=== PATIENT | female | born 1970 | race Caucasian/White ===

== ENCOUNTER 2022-06-09 23:56 | Emergency (ER) | payer BC ==
[~2022-06-09] VITALS: Ht 162.6 cm; Wt 114.8 kg
[2022-06-10 00:55] LABS: BASOPHILS % (AUTO) 0 % (0-10); EOSINOPHILS # (AUTO) 0.1 10^3/uL (0.0-0.3); EOSINOPHILS % (AUTO) 1 % (0-10); HEMATOCRIT 47 % (35-52); HEMOGLOBIN 15.9 g/dL (11.5-16.0); LYMPHOCYTES # (AUTO) 1.7 10^3/uL (1.0-4.0); LYMPHOCYTES % (AUTO) 13 % (12-44); MEAN CORPUSCULAR HEMOGLOBIN 29 pg (25-34); MEAN CORPUSCULAR HGB CONC 34 g/dL (32-36); MEAN CORPUSCULAR VOLUME 85 fL (80-99); MEAN PLATELET VOLUME 10.4 fL (9.0-12.2); MONOCYTES # (AUTO) 0.6 10^3/uL (0.0-1.0); MONOCYTES % (AUTO) 4 % (0-12); NEUTROPHILS # (AUTO) 10.6 10^3/uL (1.8-7.8); NEUTROPHILS % (AUTO) 81 % (42-75); PLATELET COUNT 534 10^3/uL (130-400); WHITE BLOOD COUNT 13.1 10^3/uL (4.3-11.0)
[2022-06-10 01:00] LABS: BILIRUBIN,URINE NEGATIVE (NEGATIVE); CLARITY,URINE SL CLOUDY; COLOR,URINE YELLOW; GLUCOSE, URINE (UA) NEGATIVE (NEGATIVE); KETONES,URINE 3+ (NEGATIVE); LEUKOCYTE ESTERASE ,URINE NEGATIVE (NEGATIVE); NITRITE,URINE NEGATIVE (NEGATIVE); PH,URINE 5.5 (5-9); PROTEIN,URINE 1+ (NEGATIVE)
[2022-06-10] MEDS ORDERED: fentaNYL INJ 100 MCG/2 ML AMP IVP ONE ×2 (01:00→03:30)
[2022-06-10] MEDS ORDERED: ONDANSETRON 4 MG/2 ML (SDV) Z0FRAN IVP ONE ×2 (01:00→06:30)
[2022-06-10] MEDS ORDERED: LACTATED RINGERS 1,000 ML IV ONE (01:00)
[2022-06-10 01:03] LABS: ALBUMIN 4.2 GM/DL (3.2-4.5)
[2022-06-10 01:05] LABS: CALCIUM 10.1 MG/DL (8.5-10.1)
[2022-06-10 01:06] LABS: TOTAL PROTEIN 8.1 GM/DL (6.4-8.2)
[2022-06-10 01:08] LABS: BILIRUBIN,TOTAL 0.6 MG/DL (0.1-1.0)
--- NOTE | 2022-06-10 01:09 | ED Abdominal Pain ---
General Chief Complaint: Abdominal/GI Problems Stated Complaint: ABD PX,DEHYRATED Nursing Triage Note: Pt ambulates to ED5 with c/o abdominal pain beginning Thursday afternoon. Pt reports having gastric bypass surgery 05/28/22, reports follow up was fine on Thursday. Abdominal pain and cramping started Thursday afternoon 06/09/22. Pt reports waves of hot and cold that coinside with abdominal pain cramps that come and go. Heat applied with minimal relief. Pt called the on-call dr for her surgery and they advised her to go to ER. Source of Information: Patient Exam Limitations: No Limitations NPO Since: [id number] @ 1300 (apple sauce and hot tea) (CHOLO SEN) History of Present Illness Date Seen by Provider: Jun 10, 2022 Time Seen by Provider: 00:33 Initial Comments This is a 51yo F s/p Laparoscopic Sebastian-en-Y gastric bypass ([id number]) who presents for abdominal pain since yesterday [id number] in the evening. Patient endorses general malaise and some abdominal discomfort throughout the day which progressed to severe abdominal discomfort at around 2100. Pt described 03/10 severe, intermittent abdominal pain of the general abdominal area, also described as a "labor cramp feeling". Pt endorses pale/yellow stool, nausea, vomiting (frothy appearance), chills, and diaphoresis. Denies hematochezia, melena, or hematemesis. Patient reports last intake of apple sauce and hot tea approximately 1300 on . Otherwise, she has trouble with intake of fluids and foods. No other reported pmhx. Home medications bariatric vitamins, Pepcid, and Effexor. Allergies to penicillins, sulfa drugs, and meperidine. Surgical history includes Sebastian-en-Y gastric bypass ([id number] Stapleton in [place], [place]), cholecystectomy, and complete hysterectomy. No complications following Sebastian-en-Y, last appointment with Dr. Stapleton was which was unremarkable. Denies and tobacco, alcohol, or illicit drug use. Timing/Duration: 12-24 Hours Severity/Quality: Severe Location: Generalized Abdomen Radiation: No Radiation Activities at Onset: None Associated Symptoms: Diaphoresis, Fever/Chills, Nausea/Vomiting (CHOLO SEN) Allergies and Home Medications Allergies Coded Allergies: Penicillins (Verified Allergy, Severe, Anaphylaxis, 06/10/22) Sulfa (Sulfonamide Antibiotics) (Verified Allergy, Severe, Anaphylaxis, 06/10/22) meperidine (Verified Allergy, Unknown, 06/10/22) Patient Home Medication List Home Medication List Reviewed: Yes (CHELSEY JEFFERS MD) Review of Systems Review of Systems Constitutional: chills, diaphoresis, fever, malaise Respiratory: No Symptoms Reported Cardiovascular: No Symptoms Reported Gastrointestinal: Abdominal Pain; Denies Constipated, Denies Diarrhea, Denies Difficulty Swallowing; Nausea, Poor Fluid Intake, Vomiting (frothy), Other (pale/yellow stool) Genitourinary: No Symptoms Reported Skin: no symptoms reported (CHOLO SEN) Past Mysxcwq-Rdflvm-Qpzlgp Hx Patient Social History Tobacco Use?: No Smokeless Tobacco Frequency: Never a User Use of E-Cig and/or Vaping dev: No Substance use?: No Alcohol Use?: No Pt feels they are or have been: No (CHOLO SEN) Immunizations Up To Date Influenza Vaccine Up-to-Date: Yes; Up-to-Date First/Initial COVID19 Vaccinat: unkn (CHOLO SEN) Past Medical History Surgery/Hospitalization HX: Pt had gastric bypass surgery done in [place] by Dr Stapleton on 05/28/22 (CHOLO SEN) Physical Exam Vital Signs Vital Signs - First Documented 06/10/22 00:23 Temp 36.5 Pulse 103 Resp 18 B/P (MAP) 197/131 (153) Pulse Ox 98 O2 Delivery Room Air (CHELSEY JEFFERS MD) Vital Signs Capillary Refill : (CHOLO SEN) Height/Weight/BMI Height: '" Weight: lbs. oz. kg; 43.00 BMI Method: General Appearance: WD/WN, mild distress, obese Respiratory: chest non-tender, lungs clear, normal breath sounds, no respiratory distress, no accessory muscle use Cardiovascular: regular rate, rhythm, no edema, no murmur Gastrointestinal: soft, other (obese abdomen, diminished bowel sounds. Pain with percussion and palpation of left abdomen. Trochar incision sites x5 are well healed. Small area of ecchymosis on RLQ which patient reports was present following her surgery and has not worsened.) Neurologic/Psychiatric: no motor/sensory deficits, alert, normal mood/affect, oriented x 3 Skin: normal color, warm/dry (CHOLO SEN) Progress/Results/Core Measures Results/Orders Lab Results Laboratory Tests Test 06/10/22 00:20 06/10/22 00:54 Range/Units White Blood Count 13.1 H 4.3-11.0 10^3/uL Red Blood Count 5.55 H 3.80-5.11 10^6/uL Hemoglobin 15.9 11.5-16.0 g/dL Hematocrit 47 35-52 % Mean Corpuscular Volume 85 80-99 fL Mean Corpuscular Hemoglobin 29 25-34 pg Mean Corpuscular Hemoglobin Concent 34 32-36 g/dL Red Cell Distribution Width 13.8 10.0-14.5 % Platelet Count 534 H 130-400 10^3/uL Mean Platelet Volume 10.4 9.0-12.2 fL Immature Granulocyte % (Auto) 0 % Neutrophils (%) (Auto) 81 H 42-75 % Lymphocytes (%) (Auto) 13 12-44 % Monocytes (%) (Auto) 4 0-12 % Eosinophils (%) (Auto) 1 0-10 % Basophils (%) (Auto) 0 0-10 % Neutrophils # (Auto) 10.6 H 1.8-7.8 10^3/uL Lymphocytes # (Auto) 1.7 1.0-4.0 10^3/uL Monocytes # (Auto) 0.6 0.0-1.0 10^3/uL Eosinophils # (Auto) 0.1 0.0-0.3 10^3/uL Basophils # (Auto) 0.0 0.0-0.1 10^3/uL Immature Granulocyte # (Auto) 0.1 0.0-0.1 10^3/uL Sodium Level 139 135-145 MMOL/L Potassium Level 4.0 3.6-5.0 MMOL/L Chloride Level 105 98-107 MMOL/L Carbon Dioxide Level 18 L 21-32 MMOL/L Anion Gap 16 H 5-14 MMOL/L Blood Urea Nitrogen 15 7-18 MG/DL Creatinine 0.83 0.60-1.30 MG/DL Estimat Glomerular Filtration Rate 85 BUN/Creatinine Ratio 18 Glucose Level 117 H 70-105 MG/DL Calcium Level 10.1 8.5-10.1 MG/DL Corrected Calcium 9.9 8.5-10.1 MG/DL Total Bilirubin 0.6 0.1-1.0 MG/DL Aspartate Amino Transf (AST/SGOT) 38 H 5-34 U/L Alanine Aminotransferase (ALT/SGPT) 53 0-55 U/L Alkaline Phosphatase 124 40-136 U/L C-Reactive Protein High Sensitivity 0.95 H 0.00-0.50 MG/DL Total Protein 8.1 6.4-8.2 GM/DL Albumin 4.2 3.2-4.5 GM/DL Lipase 17 8-78 U/L Urine Color YELLOW Urine Clarity SL CLOUDY Urine pH 5.5 5-9 Urine Specific [place] >=1.030 1.016-1.022 Urine Protein 1+ H NEGATIVE Urine Glucose (UA) NEGATIVE NEGATIVE Urine Ketones 3+ H NEGATIVE Urine Nitrite NEGATIVE NEGATIVE Urine Bilirubin NEGATIVE NEGATIVE Urine Urobilinogen 1.0 < = 1.0 MG/DL Urine Leukocyte Esterase NEGATIVE NEGATIVE Urine RBC (Auto) NEGATIVE NEGATIVE Urine RBC NONE /HPF Urine WBC 0-2 /HPF Urine Crystals PRESENT H /LPF Urine Calcium Oxalate Crystals MODERATE H /LPF Urine Bacteria NEGATIVE /HPF Urine Casts NONE /LPF Urine Mucus SMALL H /LPF Urine Culture Indicated NO (CHELSEY JEFFERS MD) My Orders Orders - CHELSEY JEFFERS MD Cbc With Automated Diff (06/10/22 00:48) Comprehensive Metabolic Panel (06/10/22 00:48) Hs C Reactive Protein (06/10/22 00:48) Lipase (06/10/22 00:48) Ua Culture If Indicated (06/10/22 00:48) Ed Iv/Invasive Line Start (06/10/22 00:48) Lactated Ringers (Lr 1000 Ml Iv Solution (06/10/22 01:00) Ondansetron Injection (Zofran Injectio (06/10/22 01:00) Fentanyl Inj (Sublimaze Injection) (06/10/22 01:00) Ct Abdomen/Pelvis W (06/10/22 01:27) Promethazine Injection (Phenergan Injec (06/10/22 03:30) Fentanyl Inj (Sublimaze Injection) (06/10/22 03:30) Morphine Injection (Morphine Injection (06/10/22 06:15) Ondansetron Injection (Zofran Injectio (06/10/22 06:30) Ns Iv 500 Ml (Sodium Chloride 0.9%) (06/10/22 06:30) (CHELSEY JEFFERS MD) Medications Given in ED Current Medications Medications Dose Ordered Sig/Allie Route Start Time Stop Time Status Last Admin Dose Admin Fentanyl Citrate 50 mcg ONCE ONCE IVP 06/10/22 01:00 06/10/22 01:01 DC 06/10/22 01:12 50 MCG Fentanyl Citrate 50 mcg ONCE ONCE IVP 06/10/22 03:30 06/10/22 03:31 DC 06/10/22 03:27 50 MCG Lactated Ringer's 1,000 ml @ 0 mls/hr Q0M ONCE IV 06/10/22 01:00 06/10/22 01:01 DC 06/10/22 00:58 999 MLS/HR Ondansetron HCl 4 mg ONCE ONCE IVP 06/10/22 06:30 06/10/22 06:31 DC 06/10/22 07:00 4 MG Ondansetron HCl 8 mg ONCE ONCE IVP 06/10/22 01:00 06/10/22 01:01 DC 06/10/22 01:12 8 MG Promethazine HCl 25 mg ONCE ONCE IVP 06/10/22 03:30 06/10/22 03:31 DC 06/10/22 03:27 25 MG Sodium Chloride 500 ml @ 0 mls/hr Q0M ONCE IV 06/10/22 06:30 06/10/22 06:31 DC 06/10/22 06:21 999 MLS/HR (CHELSEY JEFFERS MD) Vital Signs/I&O 06/10/22 06/10/22 06/10/22 06/10/22 00:23 00:30 06:33 07:07 Temp 36.5 36.5 36.5 Pulse 103 103 100 100 Resp 18 18 18 18 B/P (MAP) 197/131 (153) 163/94 (117) 151/75 (100) 151/75 Pulse Ox 98 98 99 99 O2 Delivery Room Air Room Air (CHELSEY JEFFERS MD) Blood Pressure Mean: 153 Progress Progress Note #1: Time: 04:18 Progress Note Patient was interviewed and examined by me personally along with MS 4. She was found to have some left sided abdominal tenderness. Labs were obtained and re viewed by me showing mild leukocytosis without any other significant abnormalities. Labs included CBC, CMP, urinalysis and CRP. Patient's pain has been treated with fentanyl. Nausea has been treated with Zofran and Phenergan. She has been hydrated with a liter of LR. Due to the higher risk of recent Sebastian-en-Y surgery, CT imaging was deemed appropriate. Oral contrast was attem pted although she could not drink very much of the contrast. Symptoms are controlled at this time. CT read is pending due to long wait times with [facility]. Progress Note #2: Time: 05:40 Progress Note Patient has required repeat doses of pain and antiemetic medications. IV fluids were infused. CT abdomen/pelvis with IV and oral contrast was obtained. Patient was able to only ingest a small quantity of contrast media. CT report from [facility] suggests likely small bowel obstruction. Hypodensities in the spleen also raised question of splenic microabscesses. Infectious process seems unlikely with no fever and low CRP. Progress Note #3: Time: 05:52 Progress Note Case was discussed with Dr. Chirinos, general surgeon on-call. He recommended contacting the surgical team in [place] since she is so close to her surgery date and is about 2 weeks postoperative. I contacted Cherie Francis, midlevel provider on-call for Dr. Stapleton. She recommends transfer back to [place]. She advised no NG tube with a recent Sebastian-en-Y. Progress Note #4: Time: 06:18 Progress Note Both patient and Dr. Stapleton's team are agreeable to patient transferring by private vehicle. This will expedite her transfer by potentially several hours. She will receive another 500 mL in fluid bolus before departure as well as morphine for pain control and Zofran for nausea control. Transfer is being a ccepted by Dr. Stapleton via Cherie Francis. (CHELSEY JEFFERS MD) Diagnostic Imaging Diagonstic Imaging: CT Plain Films/CT/US/NM/MRI: abdomen, pelvis Comments CT abdomen and pelvis with IV and oral contrast viewed by me and [facility] report reviewed. There was no evidence of anastomotic leak. Small bowel obstruction was suspected with transition point near the anastomosis. No additional abnormalities appreciated. (CHELSEY JEFFERS MD) Departure Impression Primary Impression: Small bowel obstruction Additional Impression: Postoperative Sebastian-en-Y Disposition: 02 XFER SHT-TRM HOSP Condition: Stable Transfer Transfer Reason: Exceeds level of care Time Spoke to Accepting Phy: 05:51 Transfer Progress Notes Transfer accepted by Dr. Stapleton's team at [facility] in [place]. Transfer Time: 07:07 Transfer Facility: [facility] Method of Transfer: Private Vehicle (CHELSEY JEFFERS MD) Departure-Patient Inst. Referrals: NO,LOCAL PHYSICIAN (PCP/Family) Primary Care Physician Medical Student Attestation and Attending Note: I have personally interviewed and examined this patient along with Cholo Sen, MS 4. I have reviewed student documentation including history, physical, and assessments. I agree with the documentation except where otherwise noted. Exam: General: Alert, oriented, no acute distress, well developed, obese HEENT: Normocephalic and atraumatic Heart: Regular rate and rhythm without murmur Lungs: Clear to auscultation bilaterally with normal effort Abdomen: Soft, tenderness in the left abdomen, upper greater than lower, nondistended, normal bowel sounds Neuropsych: Alert, oriented, no focal deficits Skin: Warm and dry without rashes, abdominal incisions well-healing (CHELSEY JEFFERS MD) CHOLO SEN Jun 10, 2022 01:09 CHELSEY JEFFERS MD Jun 10, 2022 04:21
[2022-06-10 01:10] LABS: CREATININE SERUM 0.83 MG/DL (0.60-1.30)
[2022-06-10 01:13] LABS: BACTERIA,URINE NEGATIVE /HPF; CALCIUM OXALATE CRYSTALS,UR MODERATE /LPF; WBC,URINE 0-2 /HPF
[2022-06-10] MEDS ORDERED: PROMETHAZINE INJ 25 MG/ML (PHENERGAN) AMP IVP ONE (03:30)
[2022-06-10] MEDS ORDERED: morphine INJ 10 MG/ML 1ML (SYR OR VIAL) IVP STA (06:15)
[2022-06-10] MEDS ORDERED: NS IV 500 ML 500 ML IV ONE (06:30)
--- NOTE | 2022-06-10 06:53 | Diagnostic Imaging Report ---
PROCEDURE: CT abdomen and pelvis with contrast. TECHNIQUE: Multiple contiguous axial images were obtained through the abdomen and pelvis after administration of intravenous contrast. Auto Exposure Controls were utilized during the CT exam to meet ALARA standards for radiation dose reduction. All CT scans use one or more of the following dose optimizing techniques: automated exposure control, MA and/or KvP adjustment based on patient size and exam type or iterative reconstruction. INDICATION: 51-year-old female, left-sided abdominal pain. 2 weeks post Sebastian-en-Y procedure. CORRELATION STUDY: None. FINDINGS: LOWER THORAX: Clear. LIVER: Mild steatosis. Calcified granulomas. GALLBLADDER: Cholecystectomy. No significant bile duct dilatation. SPLEEN: Normal in size. Tiny hypodensity scattered throughout the spleen. PANCREAS: Mildly atrophic. ADRENAL GLANDS: Unremarkable. KIDNEYS: Normal configuration. No calcification or obstruction. ABDOMINAL AORTA: Unremarkable, nonaneurysmal. GASTROINTESTINAL TRACT: Post gastric bypass procedure. A distended air and fluid-filled small bowel loops with wall thickening are present with transition point by the anastomosis left mid abdomen. Slight haziness of the central mesentery. Small volume pelvic ascites. No intra-abdominal abscess collection. Colon with diverticulosis. No diverticulitis. Gastrointestinal tract is limited given the absence of contrast. URINARY BLADDER: Decompressed. REPRODUCTIVE: Hysterectomy. OSSEOUS STRUCTURES: Mild to moderately advanced thoracolumbar spine degenerative change. OTHER: None. IMPRESSION: 1. Postoperative changes of a gastric bypass. Distended air fluid-filled small bowel with transition point by the anastomosis. Some of this may be attributed postoperative change with possibility of a partial or early bowel obstruction not completely excluded. Additionally with wall thickening may reflect nonspecific enteritis or edema. Consideration for short-term follow-up repeat imaging would be recommended. 2. Tiny hypodensities throughout the spleen. Nonspecific. Splenic microabscesses are a possibility. 3. Small volume pelvic free fluid. No definitive intra-abdominal abscess collection. Initial report was provided by [facility]. Dictated by: Dictated on workstation # [id number]
[2022-06-10 07:07] VITALS: BP 151/75
== END 2022-06-10 07:07 | disposition short-term general hospital (02) ==
LOC: ER 06-10 00:02
DX: K56.609 Unspecified intestinal obstruction, unspecified as to partial versus complete obstruction (principal); D72.829 Elevated white blood cell count, unspecified; E66.9 Obesity, unspecified; Z68.41 Body mass index [BMI] 40.0-44.9, adult; Z98.84 Bariatric surgery status; Z90.49 Acquired absence of other specified parts of digestive tract; Z88.5 Allergy status to narcotic agent
CPT/HCPCS: 36415; 74177; 80053; 81000; 83690; 85025; 86141

== ENCOUNTER 2022-08-03 15:34 | Emergency (ER) | payer BC ==
[~2022-08-03] VITALS: Ht 162.6 cm; Wt 100.0 kg
--- NOTE | 2022-08-03 15:53 | ED Fall/Injury ---
General Stated Complaint: FALL, RIB PAIN Source: patient Exam Limitations: no limitations History of Present Illness Date Seen by Provider: Aug 03, 2022 Time Seen by Provider: 15:37 Initial Comments 51-year-old female presents to the emergency department today for left upper quadrant abdominal and left rib pain. Symptoms started after she tripped and fell striking the table in dining chairs on the way down. She complains of pain in her left ribs and left upper abdomen. She has not tried anything for her pain. She denies hitting her head or losing consciousness. She is not on blood thinning medications. All other systems reviewed and negative except documented per HPI. Voice recognition software was used to help create this chart Allergies and Home Medications Allergies Coded Allergies: Penicillins (Verified Allergy, Severe, Anaphylaxis, 06/10/22) Sulfa (Sulfonamide Antibiotics) (Verified Allergy, Severe, Anaphylaxis, 06/10/22) meperidine (Verified Allergy, Unknown, 06/10/22) Patient Home Medication List Home Medication List Reviewed: Yes Review of Systems Review of Systems Constitutional: no symptoms reported Past Mvcldac-Jugvnb-Xspera Hx Patient Social History Tobacco Use?: No Use of E-Cig and/or Vaping dev: No Substance use?: No Alcohol Use?: No Immunizations Up To Date First/Initial COVID19 Vaccinat: unkn Past Medical History Surgery/Hospitalization HX: Pt had gastric bypass surgery done in [place] by Dr Stapleton on 05/28/22 Family Medical History Reviewed Nursing Family Hx No Pertinent Family Hx Physical Exam Vital Signs Vital Signs - First Documented 08/03/22 15:38 Temp 36.6 Pulse 93 Resp 18 B/P (MAP) 162/99 (120) Pulse Ox 100 O2 Delivery Room Air Capillary Refill : Height, Weight, BMI Height: '" Weight: lbs. oz. kg; 43.00 BMI Method: General Appearance: WD/WN, other (Appears to be in pain) HEENT: PERRL/EOMI, normal ENT inspection, TMs normal, pharynx normal Neck: non-tender, full range of motion, supple, normal inspection Cardiovascular: regular rate, rhythm, no edema, no murmur Respiratory: lungs clear, normal breath sounds, no respiratory distress, other (Tenderness palpation of the left lower lateral ribs. No crepitus or deformity. Equal breath sounds bilaterally) Gastrointestinal: normal bowel sounds, soft, no organomegaly, tenderness (Tenderness palpation left upper abdomen with voluntary guarding. No rebound tenderness. No skin changes.) Back: normal inspection, no vertebral tenderness Extremities: normal range of motion, non-tender, normal inspection, no pedal edema, no calf tenderness, normal capillary refill Neurologic/Psychiatric: alert, normal mood/affect, oriented x 3 Skin: normal color, warm/dry Progress/Results/Core Measures Results/Orders Lab Results Laboratory Tests Test 08/03/22 15:53 Range/Units White Blood Count 8.6 4.3-11.0 10^3/uL Red Blood Count 5.20 H 3.80-5.11 10^6/uL Hemoglobin 15.1 11.5-16.0 g/dL Hematocrit 45 35-52 % Mean Corpuscular Volume 87 80-99 fL Mean Corpuscular Hemoglobin 29 25-34 pg Mean Corpuscular Hemoglobin Concent 33 32-36 g/dL Red Cell Distribution Width 14.5 10.0-14.5 % Platelet Count 343 130-400 10^3/uL Mean Platelet Volume 10.8 9.0-12.2 fL Immature Granulocyte % (Auto) 0 % Neutrophils (%) (Auto) 66 42-75 % Lymphocytes (%) (Auto) 25 12-44 % Monocytes (%) (Auto) 7 0-12 % Eosinophils (%) (Auto) 1 0-10 % Basophils (%) (Auto) 0 0-10 % Neutrophils # (Auto) 5.7 1.8-7.8 X 10^3 Lymphocytes # (Auto) 2.1 1.0-4.0 X 10^3 Monocytes # (Auto) 0.6 0.0-1.0 X 10^3 Eosinophils # (Auto) 0.1 0.0-0.3 10^3/uL Basophils # (Auto) 0.0 0.0-0.1 10^3/uL Immature Granulocyte # (Auto) 0.0 0.0-0.1 10^3/uL Sodium Level 142 135-145 MMOL/L Potassium Level 3.1 L 3.6-5.0 MMOL/L Chloride Level 107 98-107 MMOL/L Carbon Dioxide Level 22 21-32 MMOL/L Anion Gap 13 5-14 MMOL/L Blood Urea Nitrogen 11 7-18 MG/DL Creatinine 0.83 0.60-1.30 MG/DL Estimat Glomerular Filtration Rate 85 BUN/Creatinine Ratio 13 Glucose Level 122 H 70-105 MG/DL Calcium Level 9.7 8.5-10.1 MG/DL Corrected Calcium 9.5 8.5-10.1 MG/DL Total Bilirubin 0.8 0.1-1.0 MG/DL Aspartate Amino Transf (AST/SGOT) 35 H 5-34 U/L Alanine Aminotransferase (ALT/SGPT) 41 0-55 U/L Alkaline Phosphatase 144 H 40-136 U/L Total Protein 7.7 6.4-8.2 GM/DL Albumin 4.2 3.2-4.5 GM/DL My Orders Orders - ELI HUNG DO Comprehensive Metabolic Panel (08/03/22 15:44) Ct Abdomen/Pelvis W (08/03/22 15:44) Cbc With Automated Diff (08/03/22 15:44) Chest Pa/Lat (2 View) (08/03/22 15:44) Fentanyl Inj (Sublimaze Injection) (08/03/22 16:00) Iohexol Injection (Omnipaque 350 Mg/Ml 1 (08/03/22 16:15) Received Contrast (Hold Metformin- Contr (08/03/22 16:15) Ns (Ivpb) (Sodium Chloride 0.9% Ivpb Bag (08/03/22 16:15) Medications Given in ED Current Medications Medications Dose Ordered Sig/Allie Route Start Time Stop Time Status Last Admin Dose Admin Fentanyl Citrate 50 mcg ONCE ONCE IVP 08/03/22 16:00 08/03/22 16:01 DC 08/03/22 16:02 50 MCG Iohexol 100 ml ONCE ONCE IV 08/03/22 16:15 08/03/22 16:16 DC 08/03/22 16:38 100 ML Sodium Chloride 100 ml ONCE ONCE IV 08/03/22 16:15 08/03/22 16:16 DC 08/03/22 16:38 80 ML Vital Signs/I&O 08/03/22 15:38 Temp 36.6 Pulse 93 Resp 18 B/P (MAP) 162/99 (120) Pulse Ox 100 O2 Delivery Room Air Departure Communication (Admissions) Patient is hemodynamically stable with normal vital signs. CT of her abdomen undertaken given the lower left rib pain to evaluate spleen and other viscus in the area. This is negative. Chest x-ray shows no obvious rib fractures, no pneumothorax or hemothorax. Labs are unremarkable. She will be discharged home with pain control in otherwise stable condition. Impression Primary Impression: LUQ abdominal pain Additional Impressions: Rib pain on left side Fall Qualified Codes: W19.XXXA - Unspecified fall, initial encounter Disposition: HOME, SELF-CARE Condition: Stable Departure-Patient Inst. Referrals: NO,LOCAL PHYSICIAN (PCP/Family) Primary Care Physician Patient Instructions: Acute Pain, Adult (DC) Scripts Hydrocodone/Acetaminophen (Hydrocodone-Acetamin 5-325 mg) 5 Mg-325 Mg Tablet 1 TAB PO Q4H PRN for PAIN-MODERATE (5-7) for 3 Days, #12 TAB Prov: ELI HUNG DO 08/03/22 ELI HUNG DO Aug 03, 2022 15:53
[2022-08-03] MEDS ORDERED: fentaNYL INJ 100 MCG/2 ML AMP IVP ONE (16:00)
[2022-08-03 16:01] LABS: BASOPHILS % (AUTO) 0 % (0-10); EOSINOPHILS # (AUTO) 0.1 10^3/uL (0.0-0.3); EOSINOPHILS % (AUTO) 1 % (0-10); HEMATOCRIT 45 % (35-52); HEMOGLOBIN 15.1 g/dL (11.5-16.0); LYMPHOCYTES # (AUTO) 2.1 X 10^3 (1.0-4.0); LYMPHOCYTES % (AUTO) 25 % (12-44); MEAN CORPUSCULAR HEMOGLOBIN 29 pg (25-34); MEAN CORPUSCULAR HGB CONC 33 g/dL (32-36); MEAN CORPUSCULAR VOLUME 87 fL (80-99); MEAN PLATELET VOLUME 10.8 fL (9.0-12.2); MONOCYTES # (AUTO) 0.6 X 10^3 (0.0-1.0); MONOCYTES % (AUTO) 7 % (0-12); NEUTROPHILS # (AUTO) 5.7 X 10^3 (1.8-7.8); NEUTROPHILS % (AUTO) 66 % (42-75); PLATELET COUNT 343 10^3/uL (130-400); WHITE BLOOD COUNT 8.6 10^3/uL (4.3-11.0)
[2022-08-03 16:11] LABS: ALBUMIN 4.2 GM/DL (3.2-4.5); POTASSIUM 3.1 MMOL/L (3.6-5.0)
[2022-08-03 16:12] LABS: CALCIUM 9.7 MG/DL (8.5-10.1)
[2022-08-03 16:13] LABS: TOTAL PROTEIN 7.7 GM/DL (6.4-8.2)
[2022-08-03 16:15] LABS: BILIRUBIN,TOTAL 0.8 MG/DL (0.1-1.0)
[2022-08-03] MEDS ORDERED: NS 100 ML (IVPB) BAG IV ONE (16:15)
[2022-08-03] MEDS ORDERED: HOLD METFORMIN - RECEIVED CONTRAST 20 ML VIAL IV SCH (16:15)
[2022-08-03] MEDS ORDERED: IOHEXOL 350 MG/ML 100 ML (OMNIPAQUE 350) VIAL IV ONE (16:15)
[2022-08-03 16:17] LABS: CREATININE SERUM 0.83 MG/DL (0.60-1.30)
--- NOTE | 2022-08-03 16:32 | Diagnostic Imaging Report ---
EXAMINATION: Chest (PA and lateral). CLINICAL INDICATION: 51-year-old female, fall. Chest and left anterior rib pain. COMPARISON: None. FINDINGS: Heart size and mediastinal contours are unremarkable. There is no identified pneumothorax. There is no pleural effusion. There is no identified focal airspace consolidation. There is no identified substantially displaced rib fracture. IMPRESSION: No identified acute cardiopulmonary abnormality. Dictated by: Dictated on workstation # [id number]
--- NOTE | 2022-08-03 16:44 | Diagnostic Imaging Report ---
EXAMINATION: CT abdomen and pelvis with intravenous contrast. TECHNIQUE: Multiple contiguous axial images were obtained through the abdomen and pelvis after the uneventful administration of intravenous contrast. All CT scans use one or more of the following dose optimizing techniques: automated exposure control, MA and/or KvP adjustment based on patient size and exam type or iterative reconstruction. HISTORY: LUQ abd pain, trauma COMPARISON: 06/10/2022. FINDINGS: Lung bases: The lung bases are clear. Solid organs: The liver is normal without focal lesion. The gallbladder is surgically absent. There is no biliary ductal dilation. Pancreas is normal. Spleen is normal. Adrenal glands are normal. The kidneys are normal without hydronephrosis. Bowel: Surgical changes from gastric bypass. No bowel obstruction. There is scattered colonic diverticulosis. There is mild diffuse wall thickening of the colon. The appendix is normal. Peritoneum: There is no intraperitoneal free fluid or free air. No suspicious lymphadenopathy. Vasculature: Normal without aneurysm. Musculoskeletal: Degenerative changes of the spine without suspicious osseous lesion or compression fracture. Pelvis: The uterus is surgically absent. No adnexal mass. The urinary bladder is normal. IMPRESSION: 1. No acute abnormality in the abdomen or pelvis. 2. Mild wall thickening diffusely seen throughout the colon may be secondary to underdistention although an infection or inflammatory colitis could have a similar appearance in the appropriate clinical setting. Dictated by: Dictated on workstation # [id number]
[2022-08-03] MEDS ORDERED: ACHD5005 PO (17:00)
[2022-08-03 17:10] VITALS: BP 143/93
== END 2022-08-03 17:10 | disposition home or self-care (01) ==
LOC: EDUNIT# 15:34 → ER 15:36
DX: R07.81 Pleurodynia (principal); R10.12 Left upper quadrant pain; W01.190A Fall on same level from slipping, tripping and stumbling with subsequent striking against furniture, initial encounter
CPT/HCPCS: 36415; 71046; 74177; 80053; 85025